=== PATIENT | female | born 1930 | race Caucasian/White ===

== ENCOUNTER 2017-12-23 14:12 | Inpatient (IN) | payer MEDICARE, BC ==
[~2017-12-23] VITALS: Ht 160 cm; Wt 57.5 kg
--- NOTE | ~2017-12-23 | OP ---
PATIENT NAME: REBEKA RIVAS MEDICAL RECORD: [id number] :34 LOCATION:[id number] ADMISSION DATE:12/23/17 SURGEON: ROXANNA GOULD MD DATE OF OPERATION: 12/25/2017 PREOPERATIVE DIAGNOSIS: Displaced femoral neck fracture of the left hip. POSTOPERATIVE DIAGNOSIS: Displaced femoral neck fracture of the left hip. PROCEDURE: Bipolar endoprosthesis of the left hip. SURGEON: Roxanna Gould MD ANESTHESIA: Spinal. INTRAOPERATIVE COMPLICATIONS: None. SUMMARY OF PATHOLOGIC FINDINGS: The patient has a displaced femoral neck fracture consistent with preoperative radiographs. IMPLANTS USED: Sandee Anato system, size 3 femoral stem with a 44 mm bipolar component, a neutral 26 inside femoral head. OPERATIVE SUMMARY IN DETAIL: After obtaining the appropriate preoperative orthopedic surgery consent as well as anesthetic consultation, evaluation and clearance, the patient was brought to the operating room and placed on table in supine position. After adequate spinal anesthesia was administered, the patient was placed in right lateral decubitus position. All pressure points were well padded to include down leg peroneal pad as well as axillary roll. The patient was held firmly to the operating table using the vacuum pack suction system. Left lower extremity and hip were then prepped and draped in a routine sterile fashion. A curvilinear incision was made over the greater trochanter, taken down the level of the IT band, was split in line with fibers of the IT band to reveal the gluteus medius minimus attachments. These were reflected anteriorly. The hip capsule was split in a T-type fashion and saved for later reapproximation. Femoral neck fracture was noted. At this time, femoral neck cut was made for the stem. The femoral head was then extracted from the acetabulum. The acetabulum was cleared of all soft tissue and bony elements. At this time, serial and sequential reaming and broaching were done for a size 3 Anato stem. This was tamped into place along with 40 along with the bipolar head on the Prabhakar taper. The hip was reduced. Intraoperative radiographs were taken that showed good position and placement of all components. The wound was copiously irrigated at this multiple points. Hip capsule was closed with #2 Ethibond followed by transosseous reapproximation of the gluteus medius minimus back to the greater trochanter. IT band was closed with #2 Ethibond followed by #1 Vicryl, 2-0 Vicryl, and skin cristal. Sterile dressings were applied. The patient was awakened and taken to recovery in stable condition. All final needle and sponge counts were correct. TRANSINT:[id number] Voice Confirmation ID: [id number] DOCUMENT ID: [id number] OPERATIVE REPORT [id number] REBEKA RIVAS MD, ROXANNA ELDER at 1447 CC: [id number] DICTATION DATE: 12/25/17 1059 MACHINE PACKAGING TECHNICIAN: 12/25/17 1425 ADM IN [facility] [address] [id number]
[2017-12-23 16:24] LABS: BASOPHILS 0.7 % (0-2); EOSINOPHILS 3.4 % (0-7); HEMATOCRIT 47.2 % (36.0-48.0); HEMOGLOBIN 15.8 g/dL (12-16); IMMATURE GRANULOCYTES 0.2 % (0-5); LYMPHOCYTES 15.8 % (15-50); MCH 32.4 pg (26.0-34.0); MCHC 33.5 g/dL (31.0-37.0); MCV 96.9 fL (80.0-100.0); MEAN PLATELET VOLUME 9.9 fL (7.4-10.4); MONOCYTES 6.6 % (2-11); NEUTROPHILS 73.3 % (40-80); PLATELET COUNT 272 10x3/uL (130-400); RBC 4.87 10x6/uL (4.00-5.40); WBC 12.3 10x3/uL (4.8-10.8)
[2017-12-23 18:04] LABS: ALBUMIN 2.9 g/dL (3.4-5.0); ANION GAP 13.1 mmol/L (8-16); BILIRUBIN - TOTAL 0.2 mg/dL (0.2-1.3); CALCIUM 8.6 mg/dL (8.5-10.1); CARBON DIOXIDE 25.6 mmol/L (21.0-32.0); CREATININE - SERUM 2.7 mg/dL (0.6-1.3); POTASSIUM - SERUM 4.7 mmol/L (3.5-5.1); PROTEIN - SERUM 7.3 g/dL (6.4-8.2)
[2017-12-23 19:07] LABS: INR 1.44 (0.85-1.17); PROTIME 17.1 SECONDS (11.6-15.0)
[2017-12-23 19:08] LABS: APTT 46.7 SECONDS (22.8-39.4)
[2017-12-23 19:28] LABS: APPEARANCE HAZY (CLEAR); COLOR YELLOW (YELLOW)
[2017-12-23 19:29] LABS: BACTERIA MANY /hpf (NONE SEEN); BILIRUBIN NEGATIVE (NEGATIVE); EPITHELIAL CELLS 0-5 /hpf (0-5); GLUCOSE NEGATIVE (NEGATIVE); KETONE NEGATIVE (NEGATIVE); NITRITE NEGATIVE (NEGATIVE); PROTEIN TRACE mg/dL (NEGATIVE); RED CELLS - URINE 0-5 /hpf (0-5); UROBILINOGEN NORMAL (NORMAL)
[2017-12-23] MEDS ORDERED: TENORMIN100 MG PO (23:04)
[2017-12-23] MEDS ORDERED: ELAVIL25 MG PO (23:04)
[2017-12-23] MEDS ORDERED: ATIVAN1 MG PO (23:04)
[2017-12-23] MEDS ORDERED: NOVOLOG100 U/M1 SC (23:05)
[2017-12-23] MEDS ORDERED: ZANTAC150 MG (23:05)
[2017-12-23] MEDS ORDERED: ZANTAC150 MG PO (23:08)
[2017-12-23] MEDS ORDERED: LANTUS INSULIN10 ML SC (23:17)
[2017-12-24] VITALS: BP 177/79
[2017-12-24 04:00] VITALS: BP 133/65
[2017-12-24 04:45] VITALS: BMI 20.7
[2017-12-24 07:06] VITALS: BP 151/65
[2017-12-24 11:04] VITALS: BP 189/85
[2017-12-24 15:11] VITALS: BP 181/75
[2017-12-24 21:12] VITALS: BP 173/81
[2017-12-25] VITALS (7 sets, daily range): BP systolic 119–195; BP diastolic 50–89
[2017-12-25 05:04] LABS: BASOPHILS 0.7 % (0-2); EOSINOPHILS 3.4 % (0-7); HEMATOCRIT 44.9 % (36.0-48.0); HEMOGLOBIN 14.9 g/dL (12-16); IMMATURE GRANULOCYTES 0.1 % (0-5); LYMPHOCYTES 26.2 % (15-50); MCH 31.8 pg (26.0-34.0); MCHC 33.2 g/dL (31.0-37.0); MCV 95.7 fL (80.0-100.0); MEAN PLATELET VOLUME 9.9 fL (7.4-10.4); MONOCYTES 10.6 % (2-11); PLATELET COUNT 262 10x3/uL (130-400); RBC 4.69 10x6/uL (4.00-5.40); RDW 15.4 % (11.5-14.5)
[2017-12-25 05:05] LABS: WBC 8.9 10x3/uL (4.8-10.8)
[2017-12-25 05:33] LABS: ANION GAP 17.8 mmol/L (8-16); CALCIUM 7.7 mg/dL (8.5-10.1); CREATININE - SERUM 2.1 mg/dL (0.6-1.3); POTASSIUM - SERUM 5.1 mmol/L (3.5-5.1)
[2017-12-25 05:44] LABS: CARBON DIOXIDE 17.3 mmol/L (21.0-32.0)
[2017-12-26 00:50] VITALS: BP 174/86
[2017-12-26 05:43] VITALS: BP 154/74
[2017-12-26 06:17] LABS: BASOPHILS 0.5 % (0-2); EOSINOPHILS 0.9 % (0-7); HEMOGLOBIN 13.7 g/dL (12-16); IMMATURE GRANULOCYTES 0.1 % (0-5); LYMPHOCYTES 24.2 % (15-50); MCH 31.6 pg (26.0-34.0); MCHC 33.4 g/dL (31.0-37.0); MCV 94.7 fL (80.0-100.0); MEAN PLATELET VOLUME 10.4 fL (7.4-10.4); MONOCYTES 10.9 % (2-11); NEUTROPHILS 63.4 % (40-80); PLATELET COUNT 222 10x3/uL (130-400); RBC 4.33 10x6/uL (4.00-5.40); RDW 15.2 % (11.5-14.5); WBC 10.2 10x3/uL (4.8-10.8)
[2017-12-26 06:29] LABS: ANION GAP 14.1 mmol/L (8-16); CALCIUM 7.8 mg/dL (8.5-10.1); CARBON DIOXIDE 16.8 mmol/L (21.0-32.0); POTASSIUM - SERUM 4.9 mmol/L (3.5-5.1)
[2017-12-26 07:28] VITALS: BP 213/86
[2017-12-26 11:45] VITALS: BP 214/67
[2017-12-26 15:45] VITALS: BP 189/103
[2017-12-26 20:00] VITALS: BP 188/99
[2017-12-27 04:00] VITALS: BP 201/105
[2017-12-27 06:06] LABS: BASOPHILS 0.3 % (0-2); EOSINOPHILS 0.1 % (0-7); HEMATOCRIT 41.8 % (36.0-48.0); HEMOGLOBIN 14.3 g/dL (12-16); IMMATURE GRANULOCYTES 0.3 % (0-5); LYMPHOCYTES 9.2 % (15-50); MCH 32.1 pg (26.0-34.0); MCHC 34.2 g/dL (31.0-37.0); MCV 93.7 fL (80.0-100.0); MEAN PLATELET VOLUME 10.5 fL (7.4-10.4); MONOCYTES 7.8 % (2-11); NEUTROPHILS 82.3 % (40-80); PLATELET COUNT 235 10x3/uL (130-400); RBC 4.46 10x6/uL (4.00-5.40); RDW 15.4 % (11.5-14.5)
[2017-12-27 06:17] LABS: WBC 13.9 10x3/uL (4.8-10.8)
[2017-12-27 06:19] LABS: ANION GAP 17.5 mmol/L (8-16); CREATININE - SERUM 1.8 mg/dL (0.6-1.3); POTASSIUM - SERUM 4.5 mmol/L (3.5-5.1)
[2017-12-27 08:51] VITALS: BP 219/104
[2017-12-27 12:52] VITALS: Ht 160 cm; Wt 57.5 kg
[2017-12-27 13:24] VITALS: BP 197/164
[2017-12-27 15:45] VITALS: BP 139/81
[2017-12-27 20:00] VITALS: BP 176/77
[2017-12-28] VITALS: BP 183/85
[2017-12-28 04:00] VITALS: BP 190/89
[2017-12-28 04:27] LABS: BASOPHILS 0.2 % (0-2); EOSINOPHILS 0.2 % (0-7); HEMATOCRIT 41.5 % (36.0-48.0); HEMOGLOBIN 14.4 g/dL (12-16); IMMATURE GRANULOCYTES 0.2 % (0-5); LYMPHOCYTES 10.9 % (15-50); MCH 32.4 pg (26.0-34.0); MCHC 34.7 g/dL (31.0-37.0); MCV 93.3 fL (80.0-100.0); MEAN PLATELET VOLUME 10.7 fL (7.4-10.4); MONOCYTES 8.7 % (2-11); NEUTROPHILS 79.8 % (40-80); PLATELET COUNT 255 10x3/uL (130-400); RBC 4.45 10x6/uL (4.00-5.40); RDW 15.3 % (11.5-14.5); WBC 13.3 10x3/uL (4.8-10.8)
[2017-12-28 04:57] LABS: ANION GAP 18.2 mmol/L (8-16); CALCIUM 8.3 mg/dL (8.5-10.1); CREATININE - SERUM 1.6 mg/dL (0.6-1.3); POTASSIUM - SERUM 4.2 mmol/L (3.5-5.1)
[2017-12-28 08:45] VITALS: BP 203/96
[2017-12-28 12:45] VITALS: BP 114/95
[2017-12-28] MEDS ORDERED: ELIQUIS2.5 MG PO (15:37)
[2017-12-28] MEDS ORDERED: ULTRAM50 MG PO (15:37)
[2017-12-28 16:43] VITALS: BP 157/92
== END 2017-12-28 18:38 | DRG 470 ==
LOC: D.ER 14:12 → D.MS 20:34
PROVIDERS: Emergency Medicine; Internal Medicine Nephrology; Orthopaedic Surgery; Physician Assistant Medical
PROC: 0SRS0JZ Replacement of Left Hip Joint, Femoral Surface with Synthetic Substitute, Open Approach (ICD-10-PCS; principal; 2017-12-25 09:00)
DX: S72.002A Fracture of unspecified part of neck of left femur, initial encounter for closed fracture (principal); N17.9 Acute kidney failure, unspecified; N39.0 Urinary tract infection, site not specified; W01.0XXA Fall on same level from slipping, tripping and stumbling without subsequent striking against object, initial encounter; I10 Essential (primary) hypertension; E11.9 Type 2 diabetes mellitus without complications; Z79.4 Long term (current) use of insulin; Z87.891 Personal history of nicotine dependence

== ENCOUNTER 2017-12-28 19:30 | Inpatient (IN) | payer MEDICARE, BC ==
[~2017-12-28] VITALS: Ht 160 cm; Wt 57.2 kg
--- NOTE | ~2017-12-28 | DS ---
PATIENT:REBEKA RIVAS :34 MEDICAL RECORD: [id number] DISCHARGE SUMMARY ADMISSION DATE: 12/28/17 DISCHARGE DATE: 01/13/18 This is a discharge dated 01/13/2018 from inpatient rehabilitation. PRIMARY DIAGNOSIS: Decreased functional ability and ability to provide activities of daily living secondary to a left hip fracture, status post ORIF. SECONDARY DIAGNOSES: 1. Acute kidney injury. 2. UTI. 3. Hyponatremia. 4. Hypertension. 5. Gastroesophageal reflux disease. 6. Diabetes. 7. History of pancreatic cancer. HOSPITAL COURSE: Full H&P is located elsewhere on the chart on this 87-year-old female who was admitted to inpatient rehab for physical therapy and occupational therapy to improve gait, transfer skills, bed mobility, and activities of daily living to a modified independent level. She was evaluated by PT and OT and their plans of care were followed. She required snf care for observation and assessment, medication administration, as well as wound care and monitoring of surgical incision. Fingerstick blood sugars were monitored throughout her hospital stay with appropriate adjustment in medications as needed. Electrolytes were managed by protocol. She was on Bactrim for antibiotic coverage. She was cooperative with therapies, progressing towards goals. Case management was involved for discharge planning. She was considered stable for discharge on 01/13/2018. DISCHARGE MEDICATIONS: As per discharge medication reconciliation. DISCHARGE DISPOSITION: The patient is discharged home. She will continue her current diet and level of activity and will have home health for continued PT and OT. She will follow up with primary care and specialists as directed. At least 30 minutes was spent in this discharge activity. TRANSINT:[id number] Voice Confirmation ID: [id number] DOCUMENT ID: [id number] Dictated By: JENI COLLINS I have interviewed/examined the above patient and agree with these documented findings. FROYLAN BENNETT MD at 1157 at 0940 CC: [id number] DICTATION DATE: 02/25/18 175 CONCHE OPERATOR: 02/26/18 1100 DIS IN 01/13/18 [place] [address]
--- NOTE | ~2017-12-28 | RHP ---
PATIENT: REBEKA RIVAS MEDICAL RECORD: [id number] ACCOUNT: [id number] [facility]1111 : 34 ADMISSION DATE: 12/28/17 REHABILITATION HISTORY AND PHYSICAL EXAMINATION POST ADMISSION PHYSICIAN EXAMINATION POST-ADMISSION PHYSICAL EXAMINATION AND HISTORY AND PHYSICAL DATE OF ADMISSION: 12/28/2017 ADMITTING DIAGNOSIS: Acute displaced and angulated fracture of the left femoral neck. HISTORY OF PRESENT ILLNESS: The patient is an 87-year-old female patient admitted to inpatient rehab with a left femoral neck fracture. She is status post open reduction internal fixation of the left hip. The patient was admitted to the acute floor on 12/23 from the ER, presented to the ER after having a fall. She complained of immediate pain in the left hip and inability to walk. Left hip showed an acute displaced angulated fracture of the left femoral neck with superior displacement of the distal fragment. She was admitted by ortho with medical management consult to clear for surgery. On , she went to the OR for left bipolar hip prosthesis. Her postop was complicated by fever and T-max of 100.8. She had some hypertension with systolic blood pressures in the 200s and UTI. After hypertensive medication management, her systolic was down to 114. She continues to be on Bactrim b.i.d. Previously, she was living alone and independent without assistive devices for mobility and ADLs. Currently, she is [id number] assist for ADLs and mobility using a rolling walker, gait belt, assistance by PT at 80% to ambulate even 2 feet. She is motivated to return home with her daughter coming to stay with her and hopefully get her back home at her prior level of care. She lives at [facility] here just right outside of [place]. Comorbidities include left hip fracture, hypertension, gastroesophageal reflux disease, history of pancreatic cancer, diabetes, hypertension, acute kidney injury, UTI, fatigue, weakness, and anxiety. PAST MEDICAL HISTORY: Significant for eye problems and impaired vision. She has got history of diabetes, pancreatic cancer, history of hypertension. PAST SURGICAL HISTORY: Includes part of her pancreas being removed. She has had a left shoulder repair, hiatal hernia repair. She has had a Renny fundoplication and then hip surgery. ALLERGIES: PENICILLIN AND CODEINE. CURRENT MEDICATIONS: Include a Catapres TTS patch to apply weekly. She is on Lantus 10 units daily, atenolol 50 mg daily. She is on amitriptyline 25 mg daily. She is on instant glucose protocol for low sugars. She is on MiraLax 17 g in 8 ounces of water daily, tramadol 50 mg every 4 hours p.r.n., Pepcid 20 mg b.i.d., lorazepam 1 mg b.i.d. p.r.n. She is on a low-resistant sliding scale of insulin and Eliquis 2.5 mg b.i.d. HABITS: No alcohol or tobacco use. FAMILY HISTORY: Noncontributory. SOCIAL HISTORY: The patient hopes to return back home. Her daughter is going HISTORY AND PHYSICAL [id number] REBEKA RIVAS to come stay with her while hopefully get her back to her prior level of functioning. REVIEW OF SYSTEMS: GENERAL: Does complain of some weakness. HEENT: Denies cold, cough, or congestion. CARDIOVASCULAR: Denies chest pain. PHYSICAL EXAMINATION: VITAL SIGNS: Stable, afebrile. GENERAL: A thin female, in no acute distress upon exam. HEENT: Normocephalic and atraumatic. Mucosa moist. NECK: Supple. No lymphadenopathy. LUNGS: Clear at this time. HEART: Regular rate and rhythm. ABDOMEN: Benign. EXTREMITIES: No clubbing, cyanosis or edema. Postop area looks well. NEUROLOGIC: She seems intact. LABORATORY DATA: Her white count is 9.9, H&H of 13 and 37, and platelet count was noted to be 267. Sodium 135, potassium 4.3, BUN and creatinine of 35 and 1.8, and blood sugar was noted to be 130. ASSESSMENT: This is an 87-year-old female patient admitted to rehab with a working diagnosis of status post open reduction internal fixation of a displaced femoral neck fracture. The patient has potential to make improvement. We will institute the following multidisciplinary therapies including, but not limited to physical, occupational, respiratory, speech, nutritional services, prosthetics and orthotics. Given her complex condition and risks for more complications, rehabilitation services cannot be provided at a low level of care such as a long-term facility. PLAN: 1. Admit to [facility] for intensive inpatient therapy to include the following disciplines: A. Physical therapy to improve gait, all transfer skills and bed mobility to a modified independent level. B. Occupational therapy to improve activities of daily living to a modified independent level. C. Case management to assist with discharge planning and placement options. D. Nutrition to assist with nutritional needs. E. Rehabilitation nursing to assist in monitoring the patient's underlying medical conditions and to assist with any type of bowel or bladder management. 2. The patient's current medication and medical care will be continued. 3. The patient will be placed on standard fall precautions. 4. We will watch her blood pressure closely, address this and increase her blood pressure medications if needed. 5. We will follow up in the a.m. TRANSINT:[id number] Voice Confirmation ID: [id number] DOCUMENT ID: [id number] ROLANDA notes whether there has been none or any medical/functional change since admission: - No change since preadmission screen. HISTORY AND PHYSICAL [id number] REBEKA RIVAS attests patient continues to be appropriate for IRF: - Continues to be appropriate. FROYLAN BENNETT MD at 1139 CC: [id number] DICTATION DATE: 12/29/17 0802 ELECTRIC RAZOR MECHANIC: 12/29/17 0845 DIS IN 01/13/18 [facility] [address] [place] [address]
[~2017-12-28 19:30] MED LIST: ATIVAN1 MG PO; ELAVIL25 MG PO; ELIQUIS2.5 MG PO; LANTUS INSULIN10 ML SC; NOVOLOG100 U/M1 SC; TENORMIN100 MG PO; ULTRAM50 MG PO; ZANTAC150 MG; ZANTAC150 MG PO
[2017-12-28 23:35] VITALS: BP 186/84; BMI 22.3
[2017-12-29 05:44] LABS: BASOPHILS 0.4 % (0-2); EOSINOPHILS 1.4 % (0-7); HEMATOCRIT 37.9 % (36.0-48.0); HEMOGLOBIN 12.9 g/dL (12-16); IMMATURE GRANULOCYTES 0.2 % (0-5); LYMPHOCYTES 19.2 % (15-50); MCH 31.9 pg (26.0-34.0); MCV 93.6 fL (80.0-100.0); MEAN PLATELET VOLUME 10.1 fL (7.4-10.4); MONOCYTES 12.3 % (2-11); NEUTROPHILS 66.5 % (40-80); PLATELET COUNT 267 10x3/uL (130-400); RBC 4.05 10x6/uL (4.00-5.40); RDW 15.5 % (11.5-14.5)
[2017-12-29 06:07] LABS: ANION GAP 14.5 mmol/L (8-16); CALCIUM 7.6 mg/dL (8.5-10.1); CARBON DIOXIDE 19.8 mmol/L (21.0-32.0); CREATININE - SERUM 1.8 mg/dL (0.6-1.3); POTASSIUM - SERUM 4.3 mmol/L (3.5-5.1)
[2017-12-29 06:19] LABS: WBC 9.9 10x3/uL (4.8-10.8)
[2017-12-29 08:00] VITALS: BP 184/75
[2017-12-29 12:20] VITALS: Ht 160 cm; Wt 57.2 kg
[2017-12-29 22:00] VITALS: BP 155/99
[2017-12-30 06:11] LABS: BASOPHILS 0.7 % (0-2); EOSINOPHILS 3.6 % (0-7); HEMATOCRIT 35.9 % (36.0-48.0); HEMOGLOBIN 12.3 g/dL (12-16); IMMATURE GRANULOCYTES 0.3 % (0-5); MCH 32.5 pg (26.0-34.0); MCHC 34.3 g/dL (31.0-37.0); MCV 94.7 fL (80.0-100.0); MEAN PLATELET VOLUME 10.1 fL (7.4-10.4); MONOCYTES 13.3 % (2-11); NEUTROPHILS 61.1 % (40-80); PLATELET COUNT 295 10x3/uL (130-400); RBC 3.79 10x6/uL (4.00-5.40); RDW 15.7 % (11.5-14.5); WBC 9.5 10x3/uL (4.8-10.8)
[2017-12-30 06:55] LABS: ANION GAP 15.4 mmol/L (8-16); CALCIUM 8.5 mg/dL (8.5-10.1); CARBON DIOXIDE 18.8 mmol/L (21.0-32.0); POTASSIUM - SERUM 4.2 mmol/L (3.5-5.1)
[2017-12-30 08:09] VITALS: BP 169/78
[2017-12-30 20:43] VITALS: BP 106/67
[2017-12-31 08:58] VITALS: BP 184/82
[2018-01-01 09:45] VITALS: BP 123/75
[2018-01-01 19:14] VITALS: BP 147/72
[2018-01-02 07:08] LABS: BASOPHILS 0.5 % (0-2); EOSINOPHILS 6.3 % (0-7); HEMATOCRIT 33.4 % (36.0-48.0); HEMOGLOBIN 11.1 g/dL (12-16); IMMATURE GRANULOCYTES 0.4 % (0-5); LYMPHOCYTES 24.1 % (15-50); MCH 31.5 pg (26.0-34.0); MCHC 33.2 g/dL (31.0-37.0); MCV 94.9 fL (80.0-100.0); MEAN PLATELET VOLUME 9.4 fL (7.4-10.4); MONOCYTES 12.3 % (2-11); NEUTROPHILS 56.4 % (40-80); RBC 3.52 10x6/uL (4.00-5.40); RDW 15.6 % (11.5-14.5); WBC 8.2 10x3/uL (4.8-10.8)
[2018-01-02 07:27] LABS: ANION GAP 14.3 mmol/L (8-16); CALCIUM 8.2 mg/dL (8.5-10.1); CARBON DIOXIDE 21.4 mmol/L (21.0-32.0); CREATININE - SERUM 1.8 mg/dL (0.6-1.3); POTASSIUM - SERUM 4.7 mmol/L (3.5-5.1)
[2018-01-02 07:32] LABS: PLATELET COUNT 442 10x3/uL (130-400)
[2018-01-02 08:00] VITALS: BP 205/79
[2018-01-02 20:00] VITALS: BP 143/71
[2018-01-03 08:17] VITALS: BP 176/67
[2018-01-03 22:16] VITALS: BP 170/73
[2018-01-04 08:00] VITALS: BP 160/58
[2018-01-04 10:53] VITALS: BP 203/75
[2018-01-04 20:42] VITALS: BP 163/73
[2018-01-05 08:11] VITALS: BP 208/86
[2018-01-05 20:00] VITALS: BP 117/69
[2018-01-06 06:12] LABS: BASOPHILS 0.6 % (0-2); HEMATOCRIT 33.4 % (36.0-48.0); HEMOGLOBIN 11.1 g/dL (12-16); IMMATURE GRANULOCYTES 0.3 % (0-5); LYMPHOCYTES 24.1 % (15-50); MCH 31.7 pg (26.0-34.0); MCHC 33.2 g/dL (31.0-37.0); MCV 95.4 fL (80.0-100.0); MEAN PLATELET VOLUME 9.6 fL (7.4-10.4); MONOCYTES 11.6 % (2-11); NEUTROPHILS 56.4 % (40-80); RDW 15.7 % (11.5-14.5); WBC 10.2 10x3/uL (4.8-10.8)
[2018-01-06 06:25] LABS: CALCIUM 8.4 mg/dL (8.5-10.1); CARBON DIOXIDE 24.9 mmol/L (21.0-32.0); CREATININE - SERUM 2.1 mg/dL (0.6-1.3); POTASSIUM - SERUM 3.9 mmol/L (3.5-5.1)
[2018-01-06 06:32] LABS: PLATELET COUNT 586 10x3/uL (130-400)
[2018-01-06 08:53] VITALS: BP 171/67
[2018-01-06 19:40] VITALS: BP 137/57
[2018-01-07 09:35] VITALS: BP 167/69
[2018-01-07 20:00] VITALS: BP 104/62
[2018-01-08 07:52] VITALS: BP 155/67
[2018-01-09 07:30] VITALS: BP 183/78
[2018-01-09 18:51] VITALS: BP 154/69
[2018-01-10 07:38] LABS: BASOPHILS 0.7 % (0-2); EOSINOPHILS 8.6 % (0-7); HEMATOCRIT 35.2 % (36.0-48.0); HEMOGLOBIN 11.4 g/dL (12-16); IMMATURE GRANULOCYTES 0.1 % (0-5); LYMPHOCYTES 26.8 % (15-50); MCH 31.3 pg (26.0-34.0); MCHC 32.4 g/dL (31.0-37.0); MCV 96.7 fL (80.0-100.0); MEAN PLATELET VOLUME 9.3 fL (7.4-10.4); MONOCYTES 11.8 % (2-11); PLATELET COUNT 602 10x3/uL (130-400); RBC 3.64 10x6/uL (4.00-5.40); RDW 15.2 % (11.5-14.5); WBC 9.1 10x3/uL (4.8-10.8)
[2018-01-10 07:52] LABS: ANION GAP 13.2 mmol/L (8-16); CALCIUM 8.7 mg/dL (8.5-10.1); CARBON DIOXIDE 26.3 mmol/L (21.0-32.0); CREATININE - SERUM 2.3 mg/dL (0.6-1.3); POTASSIUM - SERUM 4.5 mmol/L (3.5-5.1)
[2018-01-10 08:09] VITALS: BP 144/62
[2018-01-10 20:18] VITALS: BP 203/82
[2018-01-11 07:46] VITALS: BP 127/56
[2018-01-11 20:06] VITALS: BP 179/74
[2018-01-12 08:03] VITALS: BP 112/64
[2018-01-12 19:41] VITALS: BP 168/69
[2018-01-13 08:00] VITALS: BP 123/63
[2018-01-13] MEDS ORDERED: BENAZEPRIL HCL10 MG PO (10:50)
[2018-01-13] MEDS ORDERED: CATAPRES TTS-20.2 MG TRANSDERM (10:50)
== END 2018-01-13 14:19 | disposition home health service (06) | DRG 536 ==
LOC: D.REHAB 19:30
PROVIDERS: Emergency Medicine; Family Medicine
DX: S72.002A Fracture of unspecified part of neck of left femur, initial encounter for closed fracture (principal); N39.0 Urinary tract infection, site not specified; N17.9 Acute kidney failure, unspecified; I10 Essential (primary) hypertension; K21.9 Gastro-esophageal reflux disease without esophagitis; E11.9 Type 2 diabetes mellitus without complications; R53.83 Other fatigue; R53.1 Weakness; F41.9 Anxiety disorder, unspecified; Z85.07 Personal history of malignant neoplasm of pancreas; W19.XXXA Unspecified fall, initial encounter